=== PATIENT | female | born 1970 ===

== ENCOUNTER 2022-01-03 06:23 | Day surgery (SDC) | payer OTHER ==
[~2022-01-03 06:23] MED LIST: DAFLONEX-XL 11300 MG PO; IRBESARTAN-HCT1 EAC1 PO; LEVO-T50 MCG PO; TOPROL XL100 M1 PO
== END 2022-01-03 16:35 | disposition home or self-care (01) ==
LOC: CIR.AMB 06:23
PROVIDERS: ATTEND Orthopaedic Surgery Hand Surgery
DX: S52.502A Unspecified fracture of the lower end of left radius, initial encounter for closed fracture (principal)